=== PATIENT | female | born 1985 | race Caucasian/White ===

== ENCOUNTER 2017-06-01 13:47 | Emergency (ER) | payer MEDICAID, OTHER ==
[2017-06-01 14:01] VITALS: BP 158/101; PULSE 125; TEMP 97.9; O2SAT 100
[2017-06-01] MEDS ORDERED: Lidocaine 2% Inj (20ml) ONE (14:31)
[2017-06-01] MEDS ORDERED: Bacitracin Ointment 30 GM TUBE TOP STA (15:13)
--- NOTE | 2017-06-01 15:15 | C.PDOC ---
History Of Present Illness 32 y/o F p/w R hand laceration suffered just prior to arrival. Patient placed a clean knife on the countertop and was cleaning counter top surface and hit hand against blade. Denies numbness, weakness. Does not know last tetanus. Time Seen by Provider: 06/01/17 14:25 Chief Complaint (Nursing): Abnormal Skin Integrity Past Medical History Vital Signs: Last Vital Signs Temp 97.9 F 06/01/17 13:59 Pulse 125 H 06/01/17 13:59 Resp 20 06/01/17 15:33 BP 158/101 H 06/01/17 13:59 Pulse Ox 100 06/01/17 15:15 - Medical History PMH: Migraine - [facility] Procedures INTRODUCTION OF SERUM/TOX/VACCINE INTO MUSCLE, PERC APPROACH (11/06/15) Family History: States: Unknown Family Hx - Social History Hx Alcohol Use: No Hx Substance Use: No - Immunization History Hx Tetanus Toxoid Vaccination: No Hx Influenza Vaccination: No Hx Pneumococcal Vaccination: No Review Of Systems Except As Marked, All Systems Reviewed And Found Negative. Constitutional: Negative for: Fever Gastrointestinal: Negative for: Vomiting Physical Exam - Physical Exam Appears: Non-toxic, No Acute Distress Skin: Other (Laceration, 3cm involving proximal thumb and web space) Head: Normacephalic Respiratory: No Accessory Muscle Use Extremity: Normal ROM (active and passive intact in thumb IP joint and thumb MCP ), Capillary Refill (<2 seconds in thumb) Pulses: Right Radial: Normal Neurological/Psych: Normal Motor (R thumb), Normal Sensation (R thumb) ED Course And Treatment O2 Sat by Pulse Oximetry: 100 Laceration - Laceration Repair No standard instances Wound Length (In cm): 3 Description Of Wound: Linear (with flap component and 1 transver laceration of 3mm) Wound Cleansed With: Betadine, Sterile Saline Anesthesia: Lidocaine 2% Wound Examination: Irrigated With Saline, No FB With Wound Exploration, No Tendon Injury With Wound Exploration Wound Closure: Suture (4-0 ethilon) Suture Technique And Material Used: Interrupted, Nylon Wound Complexity: Simple (bacitracin applied, splint to immobilized thumb and gauze wrapping) Medical Decision Making Medical Decision Making: Tetanus updated. Patient will follow up with Hand, instructed to return to ED immediately for fever, swelling, discharge of pus, erythema. Disposition - Disposition Referrals: Scar Bernabe MD [Staff Provider] - Disposition: HOME/ ROUTINE Disposition Time: 15:14 Condition: STABLE Additional Instructions: Have your stitches removed in 10 days. Prescriptions: Amoxicillin/Clavulanate [Augmentin 875 MG-125 MG] 1 tab PO BID #20 tab Instructions: Care For Your Stitches (ED), Finger Laceration (ED) Forms: [employer] (Vincentian) - Clinical Impression Clinical Impression: Hand laceration
[2017-06-01] MEDS ORDERED: Bacitracin 500 Units/gm Oint Foilpak UD ONE (15:18)
[2017-06-01 15:33] VITALS: RESP 20
== END 2017-06-01 15:33 | disposition home or self-care (01) ==
LOC: C.ER 13:47
DX: S61.411A Laceration without foreign body of right hand, initial encounter (principal); W26.0XXA Contact with knife, initial encounter

== ENCOUNTER 2017-06-12 11:22 | Emergency (ER) | payer OTHER ==
[2017-06-12 11:29] VITALS: BP 127/81; PULSE 90; RESP 19; TEMP 97.4; O2SAT 100
--- NOTE | 2017-06-12 11:50 | C.PDOC ---
History Of Present Illness 32-YEAR-OLD FEMALE, PRESENTS TO THE EMERGENCY DEPARTMENT FOR SUTURE REMOVAL S/P LAC REPAIR R HAND 06/01. NO PAIN, SWELLING, DC. CLEANING SOAP AND WATER, BANDAGE DAILY EXAM NAD SKIN +LAC REPAIR R HAND SUTURES INTACT. NO ERYTHEMA, DC, SWELL PROC SUTURES REMOVED W 11 BLADE. MILD DEHISC. STERISTRIPS APPLIED, WOUND DRESSED AND SPLINT PLACED. PT TOELRATED WELL Time Seen by Provider: 06/12/17 11:32 Chief Complaint (Nursing): Medical Clearance History Per: Patient History/Exam Limitations: no limitations Past Medical History Reviewed: Historical Data, Nursing Documentation, Vital Signs Vital Signs: Last Vital Signs Temp 97.4 F L 06/12/17 11:28 Pulse 90 06/12/17 11:28 Resp 19 06/12/17 11:28 BP 127/81 06/12/17 11:28 Pulse Ox 100 06/12/17 11:57 - Medical History PMH: Migraine - [facility] Procedures INTRODUCTION OF SERUM/TOX/VACCINE INTO MUSCLE, PERC APPROACH (11/06/15) Family History: States: No Known Family Hx - Social History Hx Alcohol Use: No Hx Substance Use: No - Immunization History Hx Tetanus Toxoid Vaccination: No Hx Influenza Vaccination: No Hx Pneumococcal Vaccination: No Review Of Systems Except As Marked, All Systems Reviewed And Found Negative. Constitutional: Negative for: Fever Cardiovascular: Negative for: Chest Pain Respiratory: Negative for: Shortness of Breath Gastrointestinal: Negative for: Vomiting Neurological: Negative for: Weakness, Numbness Physical Exam - Physical Exam Appears: Non-toxic, No Acute Distress Skin: Other (+LAC REPAIR R HAND SUTURES INTACT. NO ERYTHEMA, DC,) Head: Atraumatic Eye(s): bilateral: Normal Inspection Nose: Normal Oral Mucosa: Moist Neck: Normal ROM Respiratory: No Accessory Muscle Use Extremity: Normal ROM Neurological/Psych: Oriented x3, Normal Speech ED Course And Treatment O2 Sat by Pulse Oximetry: 100 Medical Decision Making Medical Decision Making: PROC SUTURES REMOVED W 11 BLADE. MILD DEHISC. STERISTRIPS APPLIED, WOUND DRESSED AND SPLINT PLACED. PT TOELRATED WELL Disposition Counseled Patient/Family Regarding: Diagnosis, Need For Followup - Disposition Referrals: [facility] [Outside] [facility] [Outside] Disposition: HOME/ ROUTINE Disposition Time: 11:55 Condition: IMPROVED Additional Instructions: FOLLOW UP IN CLINIC FOR PLASTIC SURGERY FOR WOUND EVALUATION. Instructions: Wound Dehiscence (ED), Steristrips (ED) Forms: [employer] (Trinidadian) - Clinical Impression Clinical Impression: Visit for suture removal, Wound dehiscence - Scribe Statement The provider has reviewed the documentation as recorded by the Scribe (Hollie Rawls) All medical record entries made by the Scribe were at my direction and personally dictated by me. I have reviewed the chart and agree that the record accurately reflects my personal performance of the history, physical exam, medical decision making, and the department course for this patient. I have also personally directed, reviewed, and agree with the discharge instructions and disposition. Orthopedic Care Application Of:: Thumb Spica Splint
== END 2017-06-12 12:33 | disposition home or self-care (01) ==
LOC: C.ER 11:22
DX: Z48.02 Encounter for removal of sutures (principal); T81.33XA Disruption of traumatic injury wound repair, initial encounter; Y84.9 Medical procedure, unspecified as the cause of abnormal reaction of the patient, or of later complication, without mention of misadventure at the time of the procedure

== ENCOUNTER 2018-11-22 09:45 | Outpatient (CLI) | payer OTHER | END 2018-11-22 09:46 | disposition home or self-care (01) | LOC: C.USIC 09:45 | DX: R10.2 Pelvic and perineal pain (principal); E28.2 Polycystic ovarian syndrome ==